=== PATIENT | female | born 1960 | race Caucasian/White ===

== ENCOUNTER → 2016-06-05 | Outpatient (CLI) | payer OTHER ==
[~2016-06-05] MED LIST: ADIPEX-P37.5 MG; ALEVE 220MG220 MG PO; CARDI-OMEGA1000 MG PO; COLACE 100100 MG/CAP PO; COREG 6.256.25 MG/TA PO; DIOVAN 80MG80 MG PO; ESTRACE0.5 MG PO; FLOMAX 0.40.4 MG/CAP PO; IBU600 MG PO; MACROBID 1100 MG/CAP; NORCO 325 MG-51 TAB PO; PRILOSEC 20MG20 MG PO; PROVERA 2.5MG2.5 MG; TYLENOL EXTRA500 M1 PO; VALIUM 5MG T5 MG/TAB PO; ZETIA 10MG TAB10 MG PO; ZOFRAN ODT4 MG PO; ZUPLENZ4 MG MM; ZYLOPRIM 100MG100 MG PO
== END ==
LOC: COL.RAD 10:38
DX: D48.7 Neoplasm of uncertain behavior of other specified sites (principal)
CPT/HCPCS: Q9967

== ENCOUNTER → 2016-06-11 | Outpatient (CLI) | payer OTHER ==
[~2016-06-11] VITALS: Ht 165.1 cm; Wt 102.3 kg
[2016-06-11 12:10] VITALS: BP 155/90; PULSE 97
[2016-06-11 13:31] VITALS: BP 152/73; PULSE 79
== END ==
LOC: COL.RAD 11:54
DX: D49.7 Neoplasm of unspecified behavior of endocrine glands and other parts of nervous system (principal)
CPT/HCPCS: 13756

== ENCOUNTER 2017-12-03 17:48 | Emergency (ER) | payer BC ==
[~2017-12-03] VITALS: Ht 165.1 cm; Wt 102.3 kg
[2017-12-03 17:58] VITALS: TEMP 97.4
[2017-12-03 18:33] LABS: BASO # 0.1 (0.0-0.2); BASO % 0.5 % (0.0-2.0); EOS # 0.5 (0.0-0.7); EOS % 4.9 % (0-4.0); GRAN # 4.6 (1.4-6.5); GRAN % 49.2 % (42.2-75.2); HEMATOCRIT 42.2 % (37.0-47.0); HEMOGLOBIN 14.4 g/dl (12.5-16.0); LYMPH # 3.5 (1.2-3.4); LYMPH % 37.3 % (20.0-51.0); MEAN CELL VOLUME 94 fl (80.0-100.0); MEAN CORPUSCULAR HEMOGLOBIN 32 pg (27.0-31.0); MEAN CORPUSCULAR HGB CONC 34 g/dl (33.0-37.0); MEAN PLATELET VOLUME 10.6 fl (7.4-10.4); MONO # 0.7 (0.1-0.6); MONO % 7.5 % (1.7-9.3); PLATELET COUNT 271 K/mm3 (130-400); RED BLOOD COUNT 4.49 M/mm3 (4.10-5.30); REDCELL DISTRIBUTION WIDTH-CV 13.3 % (11.5-14.5)
[2017-12-03 19:12] LABS: BILIRUBIN,TOTAL 0.2 mg/dL (0.0-1.0); CALCIUM 8.9 mg/dL (8.4-10.2); CREATININE, serum 0.82 mg/dL (0.52-1.25); POTASSIUM 3.8 mmol/L (3.4-5.0)
[2017-12-03 20:02] LABS: COLLECTION METHOD CLEAN CATCH
[2017-12-03 20:14] LABS: MUCOUS Present /lpf; PH 6 (5-8); URINE APPEARANCE Cloudy; URINE BACTERIA Rare /hpf; URINE BILIRUBIN Negative (NEGATIVE); URINE BLOOD 1+ (NEGATIVE); URINE COLOR Yellow; URINE GLUCOSE Negative (NEGATIVE); URINE KETONE Negative (NEGATIVE); URINE LEUKOCYTE ESTERASE 3+ (NEGATIVE); URINE NITRATE Negative (NEGATIVE); URINE PROTEIN(semi-quant) Negative (NEGATIVE); URINE UROBILINOGEN Negative (NEGATIVE)
[2017-12-03] MEDS ORDERED: CIPRO 500MG TA500 MG PO (20:21)
[2017-12-03 22:45] VITALS: BP 148/83; PULSE 77
== END 2017-12-03 22:45 | disposition home or self-care (01) ==
LOC: COL.ER 17:48
PROVIDERS: Emergency Medicine
DX: N39.0 Urinary tract infection, site not specified (principal); K76.0 Fatty (change of) liver, not elsewhere classified; F17.210 Nicotine dependence, cigarettes, uncomplicated; Z98.890 Other specified postprocedural states; Z87.442 Personal history of urinary calculi; Z90.49 Acquired absence of other specified parts of digestive tract
CPT/HCPCS: J0696; J2765; J3010; J7030; Q9967

== ENCOUNTER 2018-04-24 21:14 | Emergency (ER) | payer BC ==
[~2018-04-24] VITALS: Ht 165.1 cm; Wt 102.3 kg
[~2018-04-24 21:14] MED LIST changes: +CEFTIN500 MG PO; +CIPRO 500MG TA500 MG PO
[2018-04-24 21:17] VITALS: TEMP 98.5
[2018-04-24 22:01] LABS: BASO # 0.1 (0.0-0.2); BASO % 0.6 % (0.0-2.0); EOS # 0.4 (0.0-0.7); EOS % 2.9 % (0-4.0); GRAN # 7.4 (1.4-6.5); GRAN % 54.6 % (42.2-75.2); HEMOGLOBIN 15.5 g/dl (12.5-16.0); LYMPH # 4.5 (1.2-3.4); LYMPH % 33.2 % (20.0-51.0); MEAN CELL VOLUME 95 fl (80.0-100.0); MEAN CORPUSCULAR HEMOGLOBIN 32 pg (27.0-31.0); MEAN CORPUSCULAR HGB CONC 34 g/dl (33.0-37.0); MEAN PLATELET VOLUME 10.9 fl (7.4-10.4); MONO # 1.1 (0.1-0.6); MONO % 8.2 % (1.7-9.3); PLATELET COUNT 279 K/mm3 (130-400); RED BLOOD COUNT 4.87 M/mm3 (4.10-5.30); REDCELL DISTRIBUTION WIDTH-CV 13.2 % (11.5-14.5)
[2018-04-24 22:12] LABS: ALBUMIN 4.2 gm/dL (3.5-5.0); BILIRUBIN,TOTAL 0.3 mg/dL (0.0-1.0); C-REACTIVE PROTEIN 0.5 mg/dL (0.0-0.9); CALCIUM 9.1 mg/dL (8.4-10.2); CREATININE, serum 0.88 mg/dL (0.52-1.25); POTASSIUM 3.9 mmol/L (3.4-5.0); TOTAL PROTEIN 7.2 gm/dL (6.4-8.2)
[2018-04-24 22:50] LABS: COLLECTION METHOD CLEAN CATCH
[2018-04-24] MEDS ORDERED: ZOFRAN 4MG T4 MG/TAB PO (22:54)
[2018-04-24] MEDS ORDERED: OMNICEF 300MG300 MG PO (22:54)
[2018-04-24] MEDS ORDERED: PYRIDIUM200 M1 PO (22:55)
[2018-04-24 23:14] LABS: PH 6 (5-8); SQUAMOUS EPITHELIAL None Seen /hpf; URINE APPEARANCE Cloudy; URINE BACTERIA None Seen /hpf; URINE BILIRUBIN Negative (NEGATIVE); URINE BLOOD 3+ (NEGATIVE); URINE COLOR Red; URINE GLUCOSE Negative (NEGATIVE); URINE KETONE Negative (NEGATIVE); URINE LEUKOCYTE ESTERASE 3+ (NEGATIVE); URINE NITRATE Negative (NEGATIVE); URINE PROTEIN(semi-quant) 2+ (NEGATIVE); URINE RBC >50 /hpf; URINE UROBILINOGEN Negative (NEGATIVE)
[2018-04-24 23:27] VITALS: BP 156/72; PULSE 89
== END 2018-04-24 23:28 | disposition home or self-care (01) ==
LOC: COL.ER 21:14
PROVIDERS: Emergency Medicine
DX: N39.0 Urinary tract infection, site not specified (principal); Z87.442 Personal history of urinary calculi
CPT/HCPCS: J0696; J7030

== ENCOUNTER 2020-08-19 19:40 | Emergency (ER) | payer BC ==
[~2020-08-19] VITALS: Ht 165.1 cm; Wt 100.0 kg
[~2020-08-19 19:40] MED LIST changes: +OMNICEF 300MG300 MG PO; +PYRIDIUM200 M1 PO; +ZOFRAN 4MG T4 MG/TAB PO
[2020-08-19 20:15] LABS: COLLECTION METHOD CLEAN CATCH
[2020-08-19 20:20] LABS: MUCOUS Present /lpf; PH 5 (5-8); SQUAMOUS EPITHELIAL 0-2 /hpf; URINE APPEARANCE Clear; URINE BACTERIA None Seen /hpf; URINE BILIRUBIN Negative (NEGATIVE); URINE BLOOD Negative (NEGATIVE); URINE COLOR Yellow; URINE GLUCOSE Negative (NEGATIVE); URINE KETONE Negative (NEGATIVE); URINE LEUKOCYTE ESTERASE Trace (NEGATIVE); URINE NITRATE Negative (NEGATIVE); URINE PROTEIN(semi-quant) Negative (NEGATIVE); URINE RBC 0-2 /hpf; URINE UROBILINOGEN Negative (NEGATIVE)
[2020-08-19 20:49] LABS: HEMATOCRIT 46.3 % (37.0-47.0); HEMOGLOBIN 15.5 g/dl (12.5-16.0); MEAN CELL VOLUME 95 fl (80.0-100.0); MEAN CORPUSCULAR HEMOGLOBIN 32 pg (27.0-31.0); MEAN CORPUSCULAR HGB CONC 34 g/dl (33.0-37.0); MEAN PLATELET VOLUME 11.2 fl (7.4-10.4); PLATELET COUNT 284 K/mm3 (130-400); RED BLOOD COUNT 4.86 M/mm3 (4.10-5.30); REDCELL DISTRIBUTION WIDTH-CV 13.1 % (11.5-14.5)
[2020-08-19 21:00] LABS: ALANINE AMINOTRANSFERASE 36 U/L (4-34); ALBUMIN 4.6 gm/dL (3.5-5.0); ALKALINE PHOSPHATASE 108 U/L (50-136); ANION GAP 11 mmol/L (7-16); AST,SGOT 37 U/L (15-37); BILIRUBIN,TOTAL < 0.1 mg/dL (0.0-1.0); BLOOD UREA NITROGEN 16 mg/dL (7-17); CALCIUM 9.8 mg/dL (8.4-10.2); CARBON DIOXIDE 25 mmol/L (22-30); CHLORIDE 103 mmol/L (98-107); CREATININE, serum 0.86 (0.52-1.25); GLUCOSE 163 mg/dL (74-106); POTASSIUM 4.4 mmol/L (3.4-5.0); SODIUM 140 mmol/L (137-145); TOTAL PROTEIN 7.9 gm/dL (6.4-8.2)
[2020-08-19 21:01] LABS: C-REACTIVE PROTEIN < 0.5 mg/dL (0.0-0.9)
[2020-08-19 21:47] LABS: BAND 3 % (0-10); EOSINOPHIL 3 % (0-4); LYMPHOCYTE 47 % (20.0-51.0); NEUTROPHILS 46 % (42.0-75.2); PLATELET ESTIMATE NORMAL (NORMAL)
[2020-08-19 23:06] VITALS: BP 126/64; PULSE 78; TEMP 98.5
== END 2020-08-19 23:19 | disposition home or self-care (01) ==
LOC: COL.ER 19:40
PROVIDERS: Nurse Practitioner
DX: R30.0 Dysuria (principal); R10.84 Generalized abdominal pain; F17.210 Nicotine dependence, cigarettes, uncomplicated; Z91.040 Latex allergy status
CPT/HCPCS: J2405; J3010; J7030; Q9967